=== PATIENT | female | born 1970 | race Caucasian/White ===

== ENCOUNTER 2022-12-06 14:11 | Emergency (ER) | payer MEDICARE, MEDICAID ==
[~2022-12-06] VITALS: Ht 165.1 cm; Wt 77.1 kg
--- OUTSIDE RECORDS SUMMARY | 2022-12-06 15:43 | XMS ---
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 EAdri VISIT COUNT (12 MO.) 3 Andrez Cordero TOTAL 4 NOTE: Visits indicate total known visits. ED/UCC VISIT TRACKING (12 MO.) 12/06/2022 14:12 [facility] TYPE: Emergency COMPLAINT: - SYNCOPE 09/08/2022 16:16 [facility] TYPE: Emergency DIAGNOSES: - Gastrointestinal hemorrhage, unspecified 08/02/2022 18:08 [facility] TYPE: Emergency DIAGNOSES: - Unspecified abdominal pain - Headache, unspecified 07/21/2022 14:08 [facility] TYPE: Emergency DIAGNOSES: - Noninfective gastroenteritis and colitis, unspecified - Other fecal abnormalities - Gastrointestinal hemorrhage, unspecified - Hypotension, unspecified - Melena INPATIENT VISIT TRACKING (12 MO.) 09/08/2022 16:16 [facility] TYPE: Inpatient COMPLAINT: - K92.2 DIAGNOSES: - Noninfective gastroenteritis and colitis, unspecified - Gastrointestinal hemorrhage, unspecified - Hypotension, unspecified 07/21/2022 14:08 And[facility] TYPE: Inpatient DIAGNOSES: - Other fecal abnormalities - Noninfective gastroenteritis and colitis, unspecified - Hypotension, unspecified - Melena [email or web address]
--- NOTE | 2022-12-07 21:51 | EKG ---
[facility] [address] [facility] [facility] [place] [address] Signed Normal sinus rhythm ST \T\ T wave abnormality, consider anterior ischemia Prolonged QT Abnormal ECG No previous ECGs available Confirmed by Nicole Melara MD () on 12/07/2022 9:51:32 PM Electronically Signed By: NICOLE MELRAA MD 12/07/222150 PATIENT NAME: LINH MCKENZIE Electrocardiogram DATE OF : 70 PHYSICIAN: NICOLE MELARA MD REPORT #: [id number] REPORT IS CONFIDENTIAL AND NOT TO BE RELEASED WITHOUT AUTHORIZATION
== END 2022-12-06 16:11 | disposition home or self-care (01) ==
LOC: ED 14:11
DX: R55 Syncope and collapse (principal); E87.6 Hypokalemia; Z88.8 Allergy status to other drugs, medicaments and biological substances; Z88.1 Allergy status to other antibiotic agents
CPT/HCPCS: 36415; 71045; 80053; 83735; 84484; 85025; 93005; 93010; 99284-25; A9270; G0480; J7040